=== PATIENT | male | born 1945 | race Caucasian/White ===

== ENCOUNTER 2018-11-07 11:20 | Inpatient (IN) | payer OTHER, MEDICARE ==
[~2018-11-07] VITALS: Ht 180.3 cm; Wt 81.6 kg
--- NOTE | ~2018-11-07 | HC ---
[facility] [place] [address] CONSULTATION Name: WHITNEY YOUNG Valorie Room #: 455-P ADM IN M.R.#: [id number] Admission: 11/07/18 Attend Phys: David Woods MD Discharge: Date of : 45 Report #: [id number] THIS REPORT FOR: //name// CC: FAM unknown David Woods DATE OF SERVICE: 11/08/2018 PULMONARY CONSULTATION REFERRING PHYSICIAN: Dr. Woods. REASON FOR REFERRAL: Dyspnea and cough. HISTORY OF PRESENT ILLNESS: The patient is a 73-year-old white male who presented to Emergency Room with persistent cough and dyspnea. A pulmonary consultation was requested. The patient states that he has smoked for most of his life. He stopped smoking few years ago. For the past year, he has noticed that he has been coughing that has been persistent. The patient stopped smoking 6 months ago. Otherwise, his cough is nonproductive. Denies any recent hemoptysis. The patient also notes progressive dyspnea over the past 2 months. The patient has never seen a cloud systems administrator. Denies any history of chronic lung disease. PAST MEDICAL HISTORY: Notable for lumbar spinal surgery, tobacco abuse as mentioned above, quit smoking about 6 months ago. PAST SURGICAL HISTORY: Unremarkable. ALLERGIES: None to medications. HOME MEDICATIONS: Losartan, hydrocodone, Colace. FAMILY HISTORY: Noncontributory. SOCIAL HISTORY: Tobacco as mentioned above. Denies any alcohol use. REVIEW OF SYSTEMS: As mentioned above, otherwise 10-point system review negative. [facility] [place] [address] CONSULTATION Name: WHITNEY YOUNG Room #: 455-P ADM IN M.R.#: [id number] Admission: 11/07/18 Attend Phys: David Woods MD Discharge: Date of : 45 Report #: [id number] PHYSICAL EXAMINATION: GENERAL: He is awake, alert, in no apparent distress. VITAL SIGNS: Temperature maximum was 100.2 degrees Fahrenheit, currently 96.6 degrees Fahrenheit, respiratory rate is 20, blood pressure is 130/79 mmHg, saturation 94%. HEENT: Normocephalic, atraumatic. NECK: Supple, without any lymphadenopathy or thyromegaly. CHEST: Breath sounds are good with mild expiratory wheezes. CARDIOVASCULAR: Normal S1, S2. There are no murmurs or gallop. There is no JVD. There is no carotid bruit. Pulses are 2+/4+ bilaterally. ABDOMEN: Soft, nontender, no organomegaly or masses felt. GENITOURINARY: Deferred. RECTAL: Deferred. EXTREMITIES: There is no edema, cyanosis or clubbing. LABORATORY DATA: Chest x-ray shows clear lung pickering. CT chest angiogram shows no evidence of pulmonary embolus. There is some evidence of tree-in-bud pattern along with small airways that appears to be prominent. There is mild mediastinal adenopathy noted. Electrolytes are normal except for creatinine of 1.8. Liver enzymes are grossly unremarkable. Albumin is 3.0, bilirubin is 1.6. WBC 21,000, hemoglobin is 14.9. There about 10% bandemia. IMPRESSION: 1. Persistent cough and dyspnea in this 73-year-old white male with long history of tobacco use. He just quit smoking [address] chest shows nodular infiltrates "tree-in-bud" pattern along with prominent small airways. Suspect the patient likely has underlying chronic obstructive pulmonary disease with exacerbation. The tree-in-bud pattern suggests bronchiolitis, perhaps related to tobacco related lung injury. 2. Tobacco abuse, quit smoking 6 months ago. 3. Renal insufficiency, unclear if this is acute or chronic. 4. Mildly elevated liver enzymes. RECOMMENDATION: Agree with bronchodilators, corticosteroids and broad spectrum antibiotics. Would recommend followup CT chest in approximately 6-8 weeks to assess the nodular infiltrates along with prominent small airways. We will also obtain IgE level. Deep venous thrombosis and gastrointestinal prophylaxis recommended. Thank you for this consultation. <ELECTRONICALLY SIGNED> By: Mateus Burgos MD 11/09/18 1659 1815 2220 Mateus Burgos MD /nt
--- NOTE | ~2018-11-07 | EKG ---
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: MATILDE : 1945 Requested By: Clarissa Vasquez Order Number: [id number] MD: Ghanshyam Jiménez Measurements Intervals [place] Rate: 118 P: 64 NM: 139 QRS: -55 QRSD: 79 T: 55 QT: 281 QTc: 394 Interpretive Statements Sinus tachycardia Probable left atrial enlargement Inferior infarct, old Compared to ECG 07/23/2013 14:03:47 Left anterior fascicular block no longer present Myocardial infarct finding still present Electronically Signed On 11-07-2018 13:30:39 BUILD AND RELEASE MANAGER by Ghanshyam Jiménez [email or web address] <ELECTRONICALLY SIGNED> By: Ghanshyam Jiménez MD 11/07/18 1330 1138 1138 Ghanshyam Jiménez MD /EPI
[~2018-11-07 11:20] MED LIST: BP MED; COLACE100 MG PO; FLAGYL500 MG PO; HYDROCODON-ACE1 EAC7 PO; LEVAQUIN 500 M500 M2 PO; LISINOPRIL-HCT1 EAC1 PO; ONDANSETRON ODT4 MG PO
[2018-11-07 11:27] VITALS: BP 151/77
[2018-11-07 12:36] LABS: ANION GAP 10 mmol/L (7-16); BUN 31 mg/dL (7-18); CALCIUM 10.1 mg/dL (8.5-10.1); CHLORIDE 99 mmol/L (98-107); CO2 24 mmol/L (21-32); CREATININE 1.8 mg/dL (0.7-1.3); GLUCOSE 132 mg/dL (74-106); POTASSIUM 3.7 mmol/L (3.5-5.1); SODIUM 133 mmol/L (136-145)
[2018-11-07 12:41] LABS: HEMATOCRIT 44.3 % (42.0-52.0); HEMOGLOBIN 14.9 gm/dL (14.0-18.0); MCH 31.4 pg (26.0-34.0); MCHC 33.8 g/dL (28.0-37.0); MCV 93.1 fL (80.0-100.0); PLATELET COUNT 273 thou/uL (150-400); RBC 4.76 mil/uL (4.50-6.00); RDW 12.7 % (10.5-14.5)
[2018-11-07 12:45] LABS: ALBUMIN 3.6 g/dL (3.4-5.0); SGOT 17 U/L (15-37); SGPT 22 U/L (30-65); TOTAL BILIRUBIN 1.6 mg/dL (<0.1-1.0); TOTAL PROTEIN 8.9 g/dL (6.4-8.2); TROPONIN-I <0.06 ng/mL (<0.06)
[2018-11-07 13:03] LABS: ABSOLUTE NEUTROPHILS 18.1 thou/uL (1.4-8.2); PLATELET ESTIMATE NORMAL
[2018-11-07] MEDS ORDERED: LOSARTAN-HCTZ1 EAC1 PO (14:23)
[2018-11-07 15:46] VITALS: BP 150/86
[2018-11-07 18:00] VITALS: BP 133/60
[2018-11-07 19:32] VITALS: BP 136/80
[2018-11-07 23:50] VITALS: BP 124/93
[2018-11-08 04:10] VITALS: BP 152/81
[2018-11-08 05:50] LABS: HEMATOCRIT 39.3 % (42.0-52.0); HEMOGLOBIN 13.4 gm/dL (14.0-18.0); MCH 31.6 pg (26.0-34.0); MCHC 34.1 g/dL (28.0-37.0); MCV 92.7 fL (80.0-100.0); RBC 4.24 mil/uL (4.50-6.00); WBC 13.8 thou/uL (4.0-11.0)
[2018-11-08 06:06] LABS: CALCIUM 8.8 mg/dL (8.5-10.1); CREATININE 1.2 mg/dL (0.7-1.3); POTASSIUM 4.1 mmol/L (3.5-5.1)
[2018-11-08 07:53] VITALS: BP 145/83
[2018-11-08 14:12] VITALS: BP 132/79
[2018-11-08 19:21] VITALS: BP 122/72
[2018-11-09 02:47] VITALS: BP 136/72
[2018-11-09 05:08] LABS: GLYCOHEMOGLOBIN (HGB A1C) 5.4 % (4.8-5.6)
[2018-11-09 07:44] VITALS: BP 137/80
[2018-11-09 15:09] VITALS: BP 121/63
[2018-11-09 16:08] LABS: IgA 106 mg/dL (61-437); IgG 1200 mg/dL (700-1600); IgM 36 mg/dL (15-143)
[2018-11-09 19:35] VITALS: BP 128/66
[2018-11-09 21:09] LABS: HIV ANTIBODY Non Reactive (Non Reactive)
[2018-11-10 07:50] VITALS: BP 139/85
[2018-11-10] MEDS ORDERED: PEPCID20 MG PO (13:27)
[2018-11-10] MEDS ORDERED: PREDNISONE 20 M20 MG PO (13:27)
[2018-11-10] MEDS ORDERED: LEVAQUIN 750 M750 MG PO (13:27)
[2018-11-10] MEDS ORDERED: DOXYCYCLINE 10100 M1 PO (14:36)
[2018-11-10 15:22] VITALS: BP 139/85
[2018-11-11 00:11] LABS: ANGIOTENSIN CONVERTNG ENZ 35 U/L (14-82)
[2018-11-11 19:07] LABS: HISTOPLASMA MYCELIAL-ID Negative (Negative)
[2018-11-13 04:05] LABS: ADENOVIRUS Negative (Negative); INFLUENZA A Negative (Negative); INFLUENZA B Negative (Negative); METAPNEUMOVIRUS Negative (Negative); PARAINFLUENZA 1 Negative (Negative); PARAINFLUENZA 2 Negative (Negative); PARAINFLUENZA 3 Negative (Negative); RHINOVIRUS Negative (Negative); RSV A Negative (Negative); RSV B Negative (Negative)
== END 2018-11-10 18:04 | disposition home or self-care (01) | DRG 871 ==
LOC: ER 11:20 → 4W 14:27 → EROBS 14:27 → 4W 17:28 → SICU 11-09 20:12 → ENTRNSPT 11-10 16:01 → SICU 11-10 18:04
PROVIDERS: Hospitalist; Internal Medicine; Specialist; Student in an Organized Health Care Education/Training Program
DX: A41.9 Sepsis, unspecified organism (principal); J18.9 Pneumonia, unspecified organism; N17.0 Acute kidney failure with tubular necrosis; J44.1 Chronic obstructive pulmonary disease with (acute) exacerbation; J44.0 Chronic obstructive pulmonary disease with (acute) lower respiratory infection; R91.1 Solitary pulmonary nodule; I10 Essential (primary) hypertension; R63.4 Abnormal weight loss; R73.9 Hyperglycemia, unspecified; D72.829 Elevated white blood cell count, unspecified; Z90.49 Acquired absence of other specified parts of digestive tract; Z68.25 Body mass index [BMI] 25.0-25.9, adult; Z87.891 Personal history of nicotine dependence; Z28.21 Immunization not carried out because of patient refusal; Z79.899 Other long term (current) drug therapy
CPT/HCPCS: 10045; 15002

== ENCOUNTER → 2019-08-31 | Outpatient (CLI) | payer OTHER, MEDICARE ==
[~2019-08-31] MED LIST changes: +DOXYCYCLINE 10100 M1 PO; +DOXYCYCLINE 10100 MG PO; +LEVAQUIN 750 M750 MG PO; +LOSARTAN-HCTZ1 EAC1 PO; +PEPCID20 MG PO; +PREDNISONE 20 M20 MG PO; +TESSALON PERLE100 MG PO; +VENTOLIN HFA 1818 GM INH
== END ==
LOC: CAT 13:47
DX: R91.8 Other nonspecific abnormal finding of lung field (principal)

== ENCOUNTER 2019-11-06 19:34 | Emergency (ER) | payer OTHER, MEDICARE ==
[~2019-11-06] VITALS: Ht 180.3 cm; Wt 79.4 kg
[~2019-11-06 19:34] MED LIST changes: -DOXYCYCLINE 10100 MG PO; -TESSALON PERLE100 MG PO; -VENTOLIN HFA 1818 GM INH
[2019-11-06 20:17] LABS: HEMATOCRIT 43.2 % (42.0-52.0); HEMOGLOBIN 14.5 gm/dL (14.0-18.0); MCHC 33.7 g/dL (28.0-37.0); RBC 4.69 mil/uL (4.50-6.00); RDW 12.9 % (10.5-14.5); WBC 17.5 thou/uL (4.0-11.0)
[2019-11-06 20:29] LABS: CALCIUM 9.7 mg/dL (8.5-10.1); CREATININE 1.5 mg/dL (0.7-1.3); POTASSIUM 3.4 mmol/L (3.5-5.1)
[2019-11-06] MEDS ORDERED: VENTOLIN HFA 1818 GM INH (22:26)
[2019-11-06] MEDS ORDERED: DOXYCYCLINE 10100 MG PO (22:26)
[2019-11-06] MEDS ORDERED: TESSALON PERLE100 MG PO (22:26)
[2019-11-07 00:31] VITALS: BP 112/80
== END 2019-11-07 00:31 | disposition home or self-care (01) ==
LOC: ER 19:34
PROVIDERS: Emergency Medicine Emergency Medical Services
DX: J20.9 Acute bronchitis, unspecified (principal); J44.0 Chronic obstructive pulmonary disease with (acute) lower respiratory infection; Z87.891 Personal history of nicotine dependence; Z88.8 Allergy status to other drugs, medicaments and biological substances

== ENCOUNTER 2021-06-09 12:43 | Emergency (ER) | payer OTHER, MEDICARE ==
[~2021-06-09] VITALS: Ht 180.3 cm; Wt 72.6 kg
[~2021-06-09 12:43] MED LIST changes: +DOXYCYCLINE 10100 MG PO; +TESSALON PERLE100 MG PO; +VENTOLIN HFA 1818 GM INH
[2021-06-09] MEDS ORDERED: COZAAR 25 MG TA25 M1 PO (13:09)
[2021-06-09 13:28] LABS: ABSOLUTE NEUTROPHILS 8.2 thou/uL (1.4-8.2); BASOPHILS 0.4 % (0.0-2.0); EOSINOPHILS 0.1 % (0.0-3.0); HEMATOCRIT 44.3 % (42.0-52.0); HEMOGLOBIN 15.2 gm/dL (14.0-18.0); LYMPHOCYTES 8.3 % (24.0-44.0); MCH 31.3 pg (26.0-34.0); MCHC 34.2 g/dL (28.0-37.0); MCV 91.4 fL (80.0-100.0); MONOCYTES 10.7 % (1.0-8.0); PLATELET COUNT 178 thou/uL (150-400); POLYS 80.5 % (36.0-66.0); RBC 4.85 mil/uL (4.50-6.00); RDW 13.1 % (10.5-14.5); WBC 10.2 thou/uL (4.0-11.0)
[2021-06-09 13:45] LABS: ANION GAP 10 mmol/L (7-16); BUN 26 mg/dL (7-18); CALCIUM 8.9 mg/dL (8.5-10.1); CHLORIDE 97 mmol/L (98-107); CO2 28 mmol/L (21-32); CREATININE 1.8 mg/dL (0.7-1.3); GLUCOSE 104 mg/dL (74-106); POTASSIUM 3.6 mmol/L (3.5-5.1); SODIUM 135 mmol/L (136-145)
[2021-06-09 13:55] LABS: ALBUMIN 3.9 g/dL (3.4-5.0); MAGNESIUM 1.9 mg/dL (1.8-2.4); SGOT 21 U/L (15-37); SGPT 26 U/L (30-65); TOTAL BILIRUBIN 0.5 mg/dL (0.2-1.0); TOTAL PROTEIN 7.7 g/dL (6.4-8.2); TROPONIN-I <0.06 ng/mL (<0.06)
[2021-06-09 15:23] VITALS: BP 118/69
--- NOTE | 2021-06-09 15:58 | EKG ---
[place] [address] [facility] [facility] [place] [address] ELECTROCARDIOGRAM REPORT Name: HANNAHANNAANDRE Valorie Room #: [facility]#: [id number] Admission: 06/09/21 Attend Phys: Discharge: 06/09/21 Date of : 45 Report #: [id number] [facility] ED Test Date: 2021-06-09 Test Time: 13:20:11 Pat Name: WHITNEY YOUNG Department: Room: Gender: M Diver Helper: erin : 1945 Requested By: Randy Berumen Order Number: [id number] MD: Sal Martin Measurements Intervals [place] Rate: 97 P: 48 [place]: 146 QRS: -54 QRSD: 79 T: 65 QT: 314 QTc: 399 Interpretive Statements Sinus rhythm Probable left atrial enlargement Abnormal R-wave progression, early transition Inferior infarct, old Compared to ECG 11/07/2018 11:38:55 Sinus tachycardia no longer present Myocardial infarct finding still present Electronically Signed On 06-09-2021 15:58:07 CDT by Sal Martin [email or web address] <ELECTRONICALLY SIGNED> By: Sal Martin MD, [facility] 06/09/21 1558 1320 1320 Sal Martin MD, FAC /EPI
== END 2021-06-09 15:24 | disposition home or self-care (01) ==
LOC: ER 12:43
PROVIDERS: Emergency Medicine
DX: U07.1 COVID-19 (principal); R10.9 Unspecified abdominal pain; E86.0 Dehydration; F17.210 Nicotine dependence, cigarettes, uncomplicated; J44.9 Chronic obstructive pulmonary disease, unspecified; Z88.8 Allergy status to other drugs, medicaments and biological substances

== ENCOUNTER 2021-06-14 17:43 | Inpatient (IN) | payer OTHER, MEDICARE ==
[~2021-06-14] VITALS: Ht 180.3 cm; Wt 74.4 kg
[~2021-06-14 17:43] MED LIST changes: +COZAAR 25 MG TA25 M1 PO
[2021-06-14 17:53] VITALS: BP 149/85
--- NOTE | 2021-06-14 17:58 | NUR ---
PT SON MEHDI YOUNG [phone]
[2021-06-14 18:58] LABS: ANION GAP 3 mmol/L (7-16); BUN 19 mg/dL (7-18); CALCIUM 9.7 mg/dL (8.5-10.1); CHLORIDE 103 mmol/L (98-107); CO2 32 mmol/L (21-32); CREATININE 1.3 mg/dL (0.7-1.3); GLUCOSE 115 mg/dL (74-106); POTASSIUM 4.4 mmol/L (3.5-5.1); SODIUM 138 mmol/L (136-145)
[2021-06-14 19:09] LABS: ALBUMIN 3.2 g/dL (3.4-5.0); SGOT 43 U/L (15-37); SGPT 56 U/L (16-63); TOTAL BILIRUBIN 0.4 mg/dL (0.2-1.0); TOTAL PROTEIN 7.2 g/dL (6.4-8.2); TROPONIN-I <0.06 ng/mL (<0.06)
[2021-06-14 20:03] VITALS: BP 149/85
[2021-06-14 20:20] VITALS: BP 148/79
[2021-06-14 20:30] VITALS: BP 154/81
[2021-06-14 20:32] LABS: HEMATOCRIT 42.3 % (42.0-52.0); HEMOGLOBIN 14.3 gm/dL (14.0-18.0); MCH 30.9 pg (26.0-34.0); MCHC 33.8 g/dL (28.0-37.0); MCV 91.5 fL (80.0-100.0); RBC 4.62 mil/uL (4.50-6.00)
[2021-06-14 23:40] VITALS: BP 133/76
[2021-06-15 02:11] LABS: URINE BILIRUBIN NEGATIVE (Negative); URINE BLOOD NEGATIVE (Negative); URINE CLARITY SL CLOUDY; URINE COLOR YELLOW; URINE GLUCOSE-RANDOM* NEGATIVE (Negative); URINE KETONES 1+ (Negative); URINE LEUKOCYTES-REFLEX NEGATIVE (Negative); URINE NITRITE-REFLEX NEGATIVE (Negative); URINE PROTEIN (DIPSTICK) 2+ (Negative); URINE SPECIFIC GRAVITY >= 1.030 (1.005-1.035); URINE UROBILINOGEN 0.2 E.U./dl (0.2-1.0)
--- NOTE | 2021-06-15 02:56 | NUR ---
PT ADMITTED FROM ER WITH INCREASED SOA. COVID + PT STATED 8-10 DAYS AGO. ALERT AND ORIENTED X4. VSS AFEBRILE. SATS WNL ON 4LNC. LUNG SOUNDS DIMINISHED. INSTRUCTED PT ON FALL PRECAUTIONS. CALL LIGHT IN REACH. BED ALARM IS ON. IVF INFUSING. ABX STARTED ORDERED.
[2021-06-15 03:10] LABS: BACTERIA-REFLEX 1-9 Few /HPF (None Seen); CELLULAR CASTS 4-10 Moderate /LPF (None Seen); COARSE GRANULAR CASTS 4-10 Moderate /LPF (None Seen); CRYSTALS None Seen /LPF (None Seen); FINE GRANULAR CASTS 4-10 Moderate /LPF (None Seen); HYALINE CASTS 4-10 Moderate /LPF (None Seen); MUCUS 4-6 Moderate strn/LPF (None Seen); SQUAMOUS 0-3 Few /LPF (0-3); URINE RBC 1-2 Rare /HPF (NONE SEEN); URINE WBC-REFLEX 0-5 Rare /HPF (0-5)
[2021-06-15 04:25] VITALS: BP 116/65
[2021-06-15 06:53] LABS: HEMATOCRIT 39.4 % (42.0-52.0); HEMOGLOBIN 13.2 gm/dL (14.0-18.0); MCHC 33.5 g/dL (28.0-37.0); MCV 92.3 fL (80.0-100.0); RBC 4.27 mil/uL (4.50-6.00); RDW 13.2 % (10.5-14.5)
[2021-06-15 07:03] LABS: ALBUMIN 2.6 g/dL (3.4-5.0); CALCIUM 8.4 mg/dL (8.5-10.1); CREATININE 1.3 mg/dL (0.7-1.3); POTASSIUM 3.8 mmol/L (3.5-5.1); TOTAL BILIRUBIN 0.5 mg/dL (0.2-1.0); TOTAL PROTEIN 6.4 g/dL (6.4-8.2)
--- NOTE | 2021-06-15 07:38 | EKG ---
[address] [address] ELECTROCARDIOGRAM REPORT Name: WHITNEY YOUNG Room #: 354-[facility].#: [id number] Admission: 06/14/21 Attend Phys: Carmen Yarbrough MD Discharge: Date of : 45 Report #: [id number] [facility] ED Test Date: 2021-06-14 Test Time: 18:24:38 Pat Name: WHITNEY YOUNG Department: Room: [facility] Gender: M Hog Counter: ROEL : 1945 Requested By: Johan Farah Order Number: [id number] MD: Sal Martin Measurements Intervals [place] Rate: 95 P: 55 DE: 125 QRS: -29 QRSD: 91 T: 82 QT: 330 QTc: 415 Interpretive Statements Sinus tachycardia Multiple ventricular premature complexes Probable left atrial enlargement Borderline left axis deviation Borderline low voltage, extremity leads Abnormal R-wave progression, early transition Nonspecific T abnrm, anterolateral leads Compared to ECG 06/09/2021 13:20:11 Ventricular premature complex(es) now present Sinus rhythm no longer present Myocardial infarct finding no longer present Electronically Signed On 06-15-2021 7:37:58 CDT by Sal Martin [email or web address] <ELECTRONICALLY SIGNED> By: Sal Martin MD, FAC 06/15/21 0737 23 23 Sal Martin MD, [facility] /EPI
[2021-06-15 07:53] VITALS: BP 119/71
--- NOTE | 2021-06-15 07:56 | NUR ---
PT PROGRESSING TOWARDS D/C GOALS VSS. SAT 92-94% ON 4LNC. RT TX GIVEN. ENC GOOD ORAL HYGIENE. PT STATED HE WOULD DO LATER. NO S/S SOA NOTED TONIGHT. PT HAS HAD NO C/O TONIGHT. EINFORCED PT TO JENNA NS BEFORE GETING OOB TO VOID. BED ALARM ON . CALL LIGHT IN REACH.
--- NOTE | 2021-06-15 13:12 | NUR ---
ASSUMED PT CARE AT SHIFT CHANGE, PT LAYING IN BED, SOA ON EXERTION AND AT REST. O2 VIA NC. PT APPETITE POOR. ENCOURAGED SMALL SNACKS AND PO DRINKS. NO OTHER CONCERNS OR QUESTIONS AT THIS TIME.
[2021-06-15 15:42] VITALS: BP 111/64
--- NOTE | 2021-06-15 15:50 | NUR ---
INITIAL ASSESSMENT: Received consult for discharge planning. SW reviewed chart and spoke with nursing and attending physician. Pt was admitted from home due to COVID pneumonia. Pt placed in Enhanced Isolation. Pt is afebrile and on 4L of O2. Pt is on IV abx and IV steroids. Remdesivir started. SW spoke with pt via phone. Introduced role of SW. Pt appears to be alert/orientated x 4. Pt reports he lives at home with his (currently in ICU also with COVID). Prior to admission, pt was independent with ADLs. No use of DME. No hx of HH services or post acute placement. Pt's PCP is Dr. Colin Krishna in [place], [place]. Plan is for pt to discharge home when medically stable. PT/OT ordered to evaluate pt for discharge needs. KEESHA is following to assist as needed with discharge planning.
[2021-06-15 20:01] VITALS: BP 121/65
--- NOTE | 2021-06-15 21:58 | NUR ---
PT IS ALERT AND ORIENTED X4. VSS AFEBRILE. NO C/O PAIN OR SOA. PRESENTLY HE IS RESTING QUIETLY TRYING TO SLEEP. UNLABORED ON 4LNC. SATS WNL. PRODUCTIVE COUGH NOTED. WILL SEND SPUTUM SAMPLE. IV FLUID INFUSING. BED DOWN. CALL LIGHT IN REACH. BED ALAQRM IS ON.
[2021-06-16 04:04] VITALS: BP 143/83
--- NOTE | 2021-06-16 05:43 | NUR ---
PT PROGRESSING TOWARDS D/C GOALS. VSS. AFEBRILE UNLABORED ON 4LNC. SAT 94%. NO C/O PAIN. NO S/S DISTRESS. URINE FOR STREP, MRSA AND SPUTUM CX SENT TO LAB.
[2021-06-16 05:44] LABS: BASOPHILS 0.4 % (0.0-2.0); HEMATOCRIT 38.4 % (42.0-52.0); LYMPHOCYTES 7.2 % (24.0-44.0); MCH 31.2 pg (26.0-34.0); MCHC 33.9 g/dL (28.0-37.0); MCV 92.1 fL (80.0-100.0); MONOCYTES 8.8 % (1.0-8.0); PLATELET COUNT 208 thou/uL (150-400); POLYS 83.6 % (36.0-66.0); RBC 4.17 mil/uL (4.50-6.00); RDW 13.2 % (10.5-14.5)
[2021-06-16 06:16] LABS: ALBUMIN 2.4 g/dL (3.4-5.0); ANION GAP 10 mmol/L (7-16); BUN 20 mg/dL (7-18); CHLORIDE 104 mmol/L (98-107); CO2 25 mmol/L (21-32); DIRECT BILIRUBIN < 0.1 mg/dL (<0.1-0.2); GLUCOSE 135 mg/dL (74-106); PHOSPHORUS 3.2 mg/dL (2.5-4.9); POTASSIUM 3.9 mmol/L (3.5-5.1); SGOT 49 U/L (15-37); SGPT 63 U/L (30-65); SODIUM 139 mmol/L (136-145); TOTAL BILIRUBIN 0.3 mg/dL (0.2-1.0); TOTAL PROTEIN 6.3 g/dL (6.4-8.2)
[2021-06-16 07:41] VITALS: BP 170/89
--- NOTE | 2021-06-16 08:11 | HC ---
[facility] [place] [address] CONSULTATION Name: WHITNEY YOUNG Valorie Room #: 354-P ADM IN M.R.#: [id number] Admission: 06/15/21 Attend Phys: Carmen Yarbrough MD Discharge: Date of : 45 Report #: [id number] THIS REPORT FOR: cc: Colin Krishna MD [facility] - Family physician unknown Benjamin Aviles MD ~ DATE OF SERVICE: 06/15/2021 INFECTIOUS DISEASE CONSULTATION ATTENDING PHYSICIAN: Dr. Yarbrough. REASON FOR EVALUATION: COVID-19 infection, complicated by pneumonitis, respiratory failure. HISTORY OF PRESENT ILLNESS: Chart reviewed. The patient examined. A 75-year-old gentleman with a history of hypertension, perhaps some underlying COPD, although has not required therapy apparently who was confirmed to be COVID positive during ER evaluation on 06/09. It is notable that his spouse has been confirmed with pneumonitis due to COVID, and has been hospitalized. He was felt to be stable, was discharged home and instructed to come back if progressive dyspnea, which he experienced as a degree of cough. It is not clear that he has had significant sustained fevers, although he reports intermittently having a low-grade temperature elevations. Denies significant anorexia. Denies gastrointestinal related complaints. He was found to be hypoxic with saturations in the 80s. He is currently maintained on supplemental oxygen 4 liters per nasal cannula. He is lucid, found to have a temperature elevation of 102.2 overnight. He was started on empiric therapy with ceftriaxone and azithromycin as well as directed therapy with corticosteroids and remdesivir. ALLERGIES: LISTED TO LISINOPRIL, WHICH CAUSES COUGH. CURRENT MEDICATIONS: Include losartan, dexamethasone 6 mg daily, hydrochlorothiazide, ipratropium and albuterol inhaler, ascorbic acid, zinc, guaifenesin, enoxaparin, ondansetron, remdesivir, azithromycin, ceftriaxone. PAST MEDICAL HISTORY: As described above, hypertension, underlying COPD. No illicit drug use. FAMILY HISTORY: Noncontributory. REVIEW OF SYSTEMS: Otherwise, unremarkable 10-point review of systems. PHYSICAL EXAMINATION: GENERAL: He is alert, cooperative, mild to moderate distress, he appears somewhat chronically ill. He is generally lucid. [address] [address] CONSULTATION Name: WHITNEY YOUNG Room #: [address] [place] [address] [place] ..#: [id number] Admission: 06/15/21 Attend Phys: Carmen Yarbrough MD Discharge: Date of : 45 Report #: [id number] VITAL SIGNS: Temperature 98.5, T-max overnight 102.2, pulse 59, respirations 18, blood pressure 119/71. SKIN: Warm, dry, no rashes. HEENT: Normocephalic. Extraocular muscles intact. NECK: Supple. Nasal cannula in place. LUNGS: Few scattered coarse breath sounds, somewhat diminished. HEART: Borderline bradycardic. I do not appreciate any murmur. ABDOMEN: Mildly distended, somewhat firm. No apparent tenderness. GENITOURINARY AND RECTAL: Deferred. LABORATORY DATA: Cultures sterile thus far. Electrolytes: Sodium 138, potassium 3.8, chloride 104, bicarbonate 28, anion gap of 6, BUN and creatinine 19 and 1.3, glucose of 106, AST 45, ALT of 55. Albumin of 2.6, total protein 6.4. Estimated GFR of 54. CBC: White count of 9.0, H and H 13.2 and 39.4, platelets of 181. Procalcitonin 0.22. ProBNP of 241. Lactic acid 1.1. CBC: White count 9.0, H and H 14.3 and 42.3, platelets of 179. Initial lab was noted. Chest x-ray, left lower lobe interstitial pulmonary infiltrate. ASSESSMENT AND PLAN: COVID-19 infection, complicated by pneumonitis and respiratory failure, possibility of secondary bacterial pneumonia given the high-grade fevers of more localized infiltrate on chest x-ray. We will adjust antimicrobial therapy to additional diagnostic testing. Continue oxygen support, wean as allowed. Add incentive spirometry. He remains quite tenuous at this point. <ELECTRONICALLY SIGNED> By: Benjamin Aviles MD 06/16/21 0811 0938 [id number] Benjamin Aviles MD /nt
--- NOTE | 2021-06-16 10:52 | NUR ---
Care assumed this am. Pt A&O x4. On 4L NC, denies chest pain and any other pain. Per PT, pt up to bedside commode and able to pace in general area. Dr. Aviles aware of MRSA lab result. Up in chair right now. SOB with exertion. Pt denies any needs at the moment. Will continue to monitor.
[2021-06-16 15:21] VITALS: BP 152/66
[2021-06-16 21:21] VITALS: BP 142/79
[2021-06-17 04:14] VITALS: BP 123/75
--- NOTE | 2021-06-17 06:08 | NUR ---
C/O dry throat , SPOOLING OPERATOR notified and order received.Cephacol lonzenges given and stated it helped. He slept intermittently during the night. Maintaining O2 sat in the low 90's on 4L/NC. He verbalized being short of breath with exertion. Cont. on enhanced precaution , afebrile.
[2021-06-17 06:56] LABS: HEMATOCRIT 38.7 % (42.0-52.0); HEMOGLOBIN 13.2 gm/dL (14.0-18.0); MCH 31.1 pg (26.0-34.0); MCHC 34.2 g/dL (28.0-37.0); MCV 90.9 fL (80.0-100.0); RBC 4.26 mil/uL (4.50-6.00); RDW 13.1 % (10.5-14.5); WBC 9.1 thou/uL (4.0-11.0)
[2021-06-17 07:20] LABS: ALBUMIN 2.5 g/dL (3.4-5.0); CALCIUM 8.2 mg/dL (8.5-10.1); DIRECT BILIRUBIN 0.1 mg/dL (<0.1-0.2); PHOSPHORUS 2.4 mg/dL (2.6-4.7); POTASSIUM 3.5 mmol/L (3.5-5.1); TOTAL BILIRUBIN 0.5 mg/dL (0.2-1.0); TOTAL PROTEIN 6.1 g/dL (6.4-8.2)
[2021-06-17 08:14] VITALS: BP 136/75
--- NOTE | 2021-06-17 10:42 | NUR ---
CARE ASSUMED THIS AM,PT ALERT ORIENTED X4, DENIES CHEST PAIN, NAUSEA AND VOMITTING. SEEMED MORE ANXIOUS AND SOME SHAKINESS. DR. RICHARDSON MADE AWARE AND WILL PUT IN ORDER FOR ANTI-ANXIETY MEDS. UP TO BSC. CONTINUE TO BE ON 4L OXYGEN, OSB WITH EXERTION. CALL LIGHT AND TABLE WITHIN REACH. DENIES ANY NEEDS SANDRA, CONTINUE TO MONITOR.
--- NOTE | 2021-06-17 15:27 | NUR ---
SW reviewed chart and spoke with nursing and attending physician. Pt remains in Enhanced Isolation due to COVID. Pt is afebrile and is on 4L of O2. Pt is on IV abx and IV steroids. Pt started on Ivermectin today and is completing course of Remdesivir. SW spoke with pt via phone to discuss discharge planning. SW discussed possible need for home O2. Pt verbalized understanding and is hoping to be able to be weaned off the O2 prior to admission. SW discussed options for DME companies if O2 is needed. No preference voiced. Plan is for pt to discharge home when medically stable. SW is following to assist as needed with discharge planning.
[2021-06-17 15:38] VITALS: BP 137/76
[2021-06-17 20:10] VITALS: BP 131/75
[2021-06-18 02:53] LABS: ALBUMIN 2.6 g/dL (3.4-5.0); CALCIUM 8.1 mg/dL (8.5-10.1); CREATININE 1.1 mg/dL (0.7-1.3); DIRECT BILIRUBIN 0.1 mg/dL (<0.1-0.2); PHOSPHORUS 2.9 mg/dL (2.5-4.9); POTASSIUM 3.8 mmol/L (3.5-5.1); TOTAL BILIRUBIN 0.5 mg/dL (0.2-1.0)
[2021-06-18 04:30] VITALS: BP 129/71
--- NOTE | 2021-06-18 07:17 | NUR ---
C/O stomach upset after he had breathing tx. Pt. stated he takes pepcid at home. VISION MIXER notified and order received. Pt. verbalized relief. Maintaining O2 sat in the low 90's on 4L/NC. Shortness of breath with exertion. He slept fair during the night. Voided per commode.
[2021-06-18 07:50] VITALS: BP 117/63
[2021-06-18 11:30] VITALS: BP 144/98
[2021-06-18 15:37] VITALS: BP 121/76
--- NOTE | 2021-06-18 15:49 | NUR ---
SW reviewed chart and spoke with nursing and attending physician. Pt remains in Enhanced Isolation due to COVID. Pt is afebrile and requiring 4L of O2. Pt is on IV meds and completing courses of Remdesivir and Ivermectin. Weekend discharge anticipated. Pt was not on O2 prior to admission. KEESHA discussed with nursing and executive wellness programs director, that pt is able to go visit his in the ICU. 3W and ICU nurses to coordinate visit. KEESHA is following and available to assist as needed with discharge planning.
--- NOTE | 2021-06-18 17:30 | NUR ---
assumed care of pt at 0700. pt alert and oriented, no acute distress. requiring 4L of oxygen via nasal cannula. up independently to bed side commode. remdesivir on hold due to increasing liver enzymes. pt asked if he was interested in visiting in ICU, says maybe later. ivf infusing per order. no events on telemetry. jermainem.
[2021-06-18 19:54] VITALS: BP 130/78
[2021-06-19 03:13] VITALS: BP 136/79
[2021-06-19 03:14] LABS: ALBUMIN 2.8 g/dL (3.4-5.0); CALCIUM 8.3 mg/dL (8.5-10.1); CREATININE 1.2 mg/dL (0.7-1.3); DIRECT BILIRUBIN 0.2 mg/dL (<0.1-0.2); PHOSPHORUS 3.4 mg/dL (2.5-4.9); POTASSIUM 4.1 mmol/L (3.5-5.1); TOTAL BILIRUBIN 0.7 mg/dL (0.2-1.0); TOTAL PROTEIN 5.7 g/dL (6.4-8.2)
--- NOTE | 2021-06-19 05:06 | NUR ---
Pharmacist notified of critical vanco trough , provider not notified since it is pharmacy managed. Dose given at MN then next dose will be adjusted per pharm. O2 at 4L/NC at beginning of shift with O2 sat in the low 90's. RT titrated O2 up to 5L later on. Encouraged use of IS. Cont. on enhanced precaution , afebrile. Up to commode to void amd had bm yesterday. Slept fair during the night. Voiced no concern at this time.
[2021-06-19 08:03] VITALS: BP 121/75
--- NOTE | 2021-06-19 15:27 | NUR ---
SW reviewed chart and spoke with nursing and attending physician. Pt remains in Enhanced Isolation due to COVID. Pt is afebrile and requiring 4-5L of O2. Pt is on IV abx and IV steroids. Remdesivir on hold due elevated liver enzymes. No weekend discharge planned. Plan is for pt to discharge home when medically stable. KEESHA is following to assist as needed with discharge planning.
[2021-06-19 15:36] VITALS: BP 122/77
[2021-06-19 19:41] VITALS: BP 119/64
--- NOTE | 2021-06-20 07:05 | NUR ---
PROGRESS PT A/O X4 UP AD RADHA VOIDING IN BSC. SLEPT ALL NOC. VSS. LUNGS WITH SCATTERED RHONCHI IN UPPER LOBES AND DIMINISHED IN BASES HAS A LOOSE COUGH SPUTUM NOT VISUALIZED HAD A BM YESTERDAY SKIN C/D/I. CONTINUE TO MONITOR.
[2021-06-20 07:34] VITALS: BP 123/77
[2021-06-20 09:29] LABS: ALBUMIN 2.9 g/dL (3.4-5.0); CALCIUM 8.7 mg/dL (8.5-10.1); CREATININE 1.2 mg/dL (0.7-1.3); DIRECT BILIRUBIN 0.2 mg/dL (<0.1-0.2); PHOSPHORUS 3.6 mg/dL (2.6-4.7); TOTAL BILIRUBIN 0.7 mg/dL (0.2-1.0); TOTAL PROTEIN 5.7 g/dL (6.4-8.2)
--- NOTE | 2021-06-20 10:59 | NUR ---
ASSUMED PT CARE AT SHIFT CHANGE, PT IS EAGER TO HEAR ABOUT HOW IS DOING, NO COMPLAINTS. PHYSICIAN TO PHYSICIAN CALL FOR UPDATE. PT CONTINUES TO HAVE STUFFY NOSE/COUGH.
[2021-06-20 16:10] VITALS: BP 114/67
[2021-06-20 20:00] VITALS: BP 119/72
[2021-06-21 05:00] VITALS: BP 112/66
--- NOTE | 2021-06-21 07:13 | NUR ---
Pt. stated he slept fair during the night. O2 at 3L/NC , no respiratory distress. Cont. on enhanced precaution , afebrile. Voiding per commode. Making some progress towards care plan goals.
[2021-06-21 08:01] VITALS: BP 114/80
[2021-06-21 10:27] LABS: HEMATOCRIT 44.8 % (42.0-52.0); HEMOGLOBIN 14.8 gm/dL (14.0-18.0); MCH 30.5 pg (26.0-34.0); MCV 92.3 fL (80.0-100.0); PLATELET COUNT 373 thou/uL (150-400); RBC 4.86 mil/uL (4.50-6.00); RDW 13.3 % (10.5-14.5); WBC 19.9 thou/uL (4.0-11.0)
[2021-06-21 10:37] LABS: ALBUMIN 2.9 g/dL (3.4-5.0); CALCIUM 8.7 mg/dL (8.5-10.1); CREATININE 1.4 mg/dL (0.7-1.3); TOTAL BILIRUBIN 0.7 mg/dL (0.2-1.0); TOTAL PROTEIN 6.3 g/dL (6.4-8.2)
[2021-06-21 10:49] LABS: ABSOLUTE NEUTROPHILS 17.9 thou/uL (1.4-8.2); METAMYELOCYTES 1 %; PLATELET ESTIMATE NORMAL
[2021-06-21 16:48] VITALS: BP 116/63
[2021-06-21 19:44] VITALS: BP 103/60
[2021-06-22 03:32] VITALS: BP 111/72
--- NOTE | 2021-06-22 05:59 | NUR ---
Slept fair during the night. Maintaining O2 sat in the low 90's to mid 90's on 3L/NC. Cont. on enhanced precaution , afebrile. Voiding per commode. Denies any concern. Making some progress towards care plan goals.
[2021-06-22 07:40] VITALS: BP 99/70
[2021-06-22 10:51] LABS: HEMATOCRIT 44.9 % (42.0-52.0); HEMOGLOBIN 14.7 gm/dL (14.0-18.0); MCHC 32.8 g/dL (28.0-37.0); MCV 91.5 fL (80.0-100.0); PLATELET COUNT 395 thou/uL (150-400); RBC 4.91 mil/uL (4.50-6.00); RDW 13.2 % (10.5-14.5); WBC 21.5 thou/uL (4.0-11.0)
[2021-06-22 11:07] LABS: ABSOLUTE NEUTROPHILS 17.4 thou/uL (1.4-8.2); METAMYELOCYTES 1 %; PLATELET ESTIMATE NORMAL
[2021-06-22 11:20] LABS: CALCIUM 9.3 mg/dL (8.5-10.1); CREATININE 1.5 mg/dL (0.7-1.3); TOTAL BILIRUBIN 0.8 mg/dL (0.2-1.0); TOTAL PROTEIN 6.4 g/dL (6.4-8.2)
[2021-06-22 15:46] VITALS: BP 94/61
--- NOTE | 2021-06-22 15:55 | NUR ---
KEESHA reviewed chart and spoke with nursing and attending physician. Pt remains in Enhanced Isolation due to COVID. Pt is afebrile and on 3L of O2. Pt is on IV steroids. Pt's WBC higher today. Pt is not ready for discharge home today. Pt will need rest/exercise oximetry prior to discharge, as pt was not on O2 prior to admissions. KEESHA spoke with pt via phone to provide update and discuss discharge plan. Pt is aware that he may need home O2. Pt states he does not feel that he needs HH. SW confirmed pt's home address and phone number. KEESHA discussed options for [employer] companies. No preference voiced. KEESHA faxed referral to [facility]. SW notified [facility] liaison. Plan is for pt to discharge home when medically stable. KEESHA is following to assist as needed with discharge planning.
[2021-06-22 19:48] VITALS: BP 106/60
[2021-06-22 21:27] LABS: URINE BILIRUBIN NEGATIVE (Negative); URINE BLOOD NEGATIVE (Negative); URINE CLARITY CLEAR; URINE COLOR YELLOW; URINE GLUCOSE-RANDOM* NEGATIVE (Negative); URINE KETONES NEGATIVE (Negative); URINE LEUKOCYTES-REFLEX NEGATIVE (Negative); URINE NITRITE-REFLEX NEGATIVE (Negative); URINE PROTEIN (DIPSTICK) NEGATIVE (Negative); URINE SPECIFIC GRAVITY 1.025 (1.005-1.035); URINE UROBILINOGEN 0.2 E.U./dl (0.2-1.0)
[2021-06-23 03:37] VITALS: BP 119/74
--- NOTE | 2021-06-23 04:50 | NUR ---
Up in the chair till HS. New IV placed on right upper arm. O2 at 3L/NC , no respiratory distress. Cont. on enhanced precaution , afebrile. Urine specimen sent to lab. Slept fair during the night. Making some progress towards care plan goals.
[2021-06-23 07:15] VITALS: BP 113/61
--- NOTE | 2021-06-23 08:47 | NUR ---
Nutrition: screen for LOS. Wt up 4 lb from admit, wt is WNL. Intake 75-100%. Last recorded BM 06/20. BUN 36, albumim 3.0. BG 97-158. Dexamethasone, vit c, zinc, pepcid, vit D and other meds reivewed. Assessed at low nutrition risk.
[2021-06-23 11:22] LABS: HEMATOCRIT 42.8 % (42.0-52.0); HEMOGLOBIN 14.1 gm/dL (14.0-18.0); MCH 30.5 pg (26.0-34.0); MCV 92.6 fL (80.0-100.0); RBC 4.63 mil/uL (4.50-6.00); RDW 13.2 % (10.5-14.5); WBC 21.1 thou/uL (4.0-11.0)
[2021-06-23 11:29] LABS: CALCIUM 8.8 mg/dL (8.5-10.1); CREATININE 1.3 mg/dL (0.7-1.3); POTASSIUM 4.4 mmol/L (3.5-5.1)
[2021-06-23] MEDS ORDERED: LEVOFLOXACIN750 MG PO (12:24)
--- NOTE | 2021-06-23 13:55 | NUR ---
KEESHA reviewed chart and spoke with nursing and attending physician. Pt remains in Enhanced Isolation due to COVID. Pt is afebrile and on 3L of O2. Pt is on IV steroids. WBC slightly lower today. Discharge home is anticipated in 1-2 days. Pt will need rest/exercise oximetry prior to discharge. [facility] delivered portable O2 tank to the hospital today for when pt is ready for discharge. KEESHA spoke with pt via phone to discuss discharge plan. Pt is hoping he will not have to go home with O2, but is agreeable if needed. KEESHA is following to assist as needed with discharge planning.
[2021-06-23 16:10] VITALS: BP 117/63
[2021-06-23 20:10] VITALS: BP 121/64
[2021-06-24 02:41] LABS: HEMATOCRIT 40.8 % (42.0-52.0); HEMOGLOBIN 13.8 gm/dL (14.0-18.0); MCH 31.1 pg (26.0-34.0); MCHC 33.8 g/dL (28.0-37.0); MCV 92.1 fL (80.0-100.0); RBC 4.43 mil/uL (4.50-6.00); WBC 18.4 thou/uL (4.0-11.0)
[2021-06-24 03:32] LABS: CALCIUM 8.2 mg/dL (8.5-10.1); CREATININE 1.3 mg/dL (0.7-1.3); MAGNESIUM 1.9 mg/dL (1.8-2.4); POTASSIUM 4.3 mmol/L (3.5-5.1)
[2021-06-24 04:15] VITALS: BP 119/64
--- NOTE | 2021-06-24 05:38 | NUR ---
Up in the chair at HS. O2 at 1L/NC with O2 sat in the low 90's. No respiratory distress. Cont. on enhanced precaution ,afebrile. Denies any concern at this time. Progressing towards discharge goal.
[2021-06-24 07:36] VITALS: BP 122/102
--- NOTE | 2021-06-24 13:14 | NUR ---
DISCHARGE NOTE: KEESHA reviewed chart and spokew with nursing and attending physician. Pt is medically stable for discharge home today. Rest/exercise oximetry study completed today. Pt does not need home O2. KEESHA notified [facility] liaison, who will apple picking supervisor portable tank later today or tomorrow. SW spoke with pt via phone to discuss discharge plan. Pt is agreeable with discharge. Pt's son will provide transportation home. No additional SW needs identified at this time. KEESHA updated attending physician. Awaiting discharge ppwk at this time. SW is available to assist should needs arise.
[2021-06-24] MEDS ORDERED: PREDNISONE 10 M10 MG PO (15:39)
[2021-06-24] MEDS ORDERED: COZAAR 50 MG TA50 M1 PO (15:39)
[2021-06-24] MEDS ORDERED: LEVOFLOXACIN500 MG PO (15:40)
[2021-06-24 15:43] VITALS: BP 122/102
[2021-06-24 15:46] VITALS: BP 122/102
[2021-06-24 16:30] VITALS: BP 122/102
[2021-06-24 16:41] VITALS: BP 122/102
== END 2021-06-24 16:34 | disposition home or self-care (01) | DRG 177 ==
LOC: ER 17:43 → 3W 19:16 → EROBS 19:16 → 3W 20:17
PROVIDERS: Emergency Medicine; Hospitalist; Internal Medicine; Nurse Practitioner Family; Specialist; ADMIT Hospitalist; ATTEND Hospitalist
PROC: XW033E5 Introduction of Remdesivir Anti-infective into Peripheral Vein, Percutaneous Approach, New Technology Group 5 (ICD-10-PCS; principal; 2021-06-15)
PROC: 5A0935A Assistance with Respiratory Ventilation, Less than 24 Consecutive Hours, High Flow/Velocity Cannula (ICD-10-PCS; 2021-06-17)
PROC: 5A0935A Assistance with Respiratory Ventilation, Less than 24 Consecutive Hours, High Flow/Velocity Cannula (ICD-10-PCS; 2021-06-18)
DX: U07.1 COVID-19 (principal); J96.01 Acute respiratory failure with hypoxia; J12.82 Pneumonia due to coronavirus disease 2019; I10 Essential (primary) hypertension; J44.9 Chronic obstructive pulmonary disease, unspecified; K08.409 Partial loss of teeth, unspecified cause, unspecified class; I95.9 Hypotension, unspecified; Z79.899 Other long term (current) drug therapy; Z88.8 Allergy status to other drugs, medicaments and biological substances; Z87.891 Personal history of nicotine dependence; Z90.49 Acquired absence of other specified parts of digestive tract
CPT/HCPCS: 10879